=== PATIENT | male | born 1985 | race Caucasian/White ===

== ENCOUNTER 2016-07-31 20:15 | Emergency (ER) | payer OTHER ==
[~2016-07-31] VITALS: Ht 170.2 cm; Wt 81.0 kg
[2016-07-31 20:40] VITALS: Ht 170.2 cm; Wt 81.0 kg
--- NOTE | 2016-07-31 21:13 | ERD ---
ER Documentation Chief Complaint Date/Time DATE: 07/31/16 TIME: 21:11 Chief Complaint HAs & facial numbness since Monday,obvious eyelid droop,no limb numbness HPI This is a 31-year-old male who presents to the emergency room for evaluation of numbness on the left portion of his face. He states that he has had this numbness for 2 days, he states that his face feels droopy on the left side. He denies any trauma, states that his face was painful this morning when he woke up. Patient denies any recent travel, or immunocompromise ROS All systems reviewed and are negative except as per history of present illness. Allergies Allergies: Coded Allergies: No Known Allergy (Unverified , 07/31/16) Physical Exam Vitals Vital Signs Date Time Temp Pulse Resp B/P Pulse Ox O2 Delivery O2 Flow Rate FiO2 07/31/16 20:40 99.3 83 20 136/92 97 Physical Exam INITIAL VITAL SIGNS: Reviewed by me GENERAL: The patient is well developed and appropriate for usual state of health in no apparent distress HEENT: Left-sided facial droop, inability to raise left eyebrow, inability to close left eye. Pupils equal, round, and reactive to light. EOMI. There is no scleral icterus. NECK: C-spine is soft and supple, there is no meningismus. There is no cervical lymphadenopathy. LUNGS: Clear to auscultation bilaterally. There are no rales, wheezes or rhonchi. HEART: Regular rate and rhythm, no murmurs, clicks, rubs or gallops. ABDOMEN: Soft, non-tender, non-distended. There are bowel sounds in all four quadrants. No rebound or guarding. EXTREMITIES: There is no peripheral cyanosis or edema. No focal swelling or erythema. NEUROLOGICAL: The patient moves all four extremities with 5/5 strength. Cranial nerves II - XII are intact. Normal gait. Alert and oriented SKIN: There is no apparent rash or petechiae. HEME/LYMPHATIC: There is no evidence of excessive bruising or lymphedema. PSYCHIATRIC: The patient does not appear anxious or depressed. Results 24 hrs Current Medications Medications (Trade) Dose Ordered Sig/Arturo Route PRN Reason Start Time Stop Time Status Last Admin Dose Admin Eye Lubricant (Artificial Tears Oph) 2 drop QID ONCE BOTH EYES 07/31/16 21:30 07/31/16 21:31 Valacyclovir HCl (Valtrex) 1,000 mg ONCE ONCE PO 07/31/16 21:30 07/31/16 21:31 Prednisone (Prednisone) 60 mg ONCE ONCE PO 07/31/16 21:30 07/31/16 21:31 Procedures/MDM This 31-year-old male presents to the emergency room for evaluation of left- sided facial numbness and tingling. This patient has a classic presentation of Sykes's palsy. He has no other focal deficits, he was given valacyclovir, prednisone, and artificial tears here in the emergency room. This patient will be discharged home with a prescription for acyclovir, prednisone and artificial tears. Departure Diagnosis: Primary Impression: Left-sided Sykes's palsy Condition: Stable KRYS MORRIS DO Jul 31, 2016 21:12
[2016-07-31] MEDS ORDERED: ACYC800T57 PO (21:15)
[2016-07-31] MEDS ORDERED: PRED20TA PO (21:15)
[2016-07-31] MEDS ORDERED: DEXT1DRO OP (21:15)
[2016-07-31] MEDS ORDERED: VALACYCLOVIR 500 MG TAB PO ONE (21:30)
[2016-07-31] MEDS ORDERED: predniSONE 20 MG TAB PO ONE (21:30)
[2016-07-31] MEDS ORDERED: ARTIFICIAL TEARS 15 ML OPH BOTH EYES ONE (21:30)
== END 2016-07-31 21:58 | disposition home or self-care (01) ==
LOC: E/R 20:15
DX: G51.0 Bell's palsy (principal); R40.2252 Coma scale, best verbal response, oriented, at arrival to emergency department; R40.2362 Coma scale, best motor response, obeys commands, at arrival to emergency department; R40.2142 Coma scale, eyes open, spontaneous, at arrival to emergency department
CPT/HCPCS: 99284; J7512